=== PATIENT | female | born 1955 | race Two or more races ===

== ENCOUNTER 2022-09-10 16:59 | Emergency (ER) | payer OTHER, MEDICAID ==
[~2022-09-10] VITALS: Ht 162.6 cm; Wt 70.0 kg
[2022-09-10 17:12] VITALS: BP 173/95
[2022-09-10 18:43] LABS: Urine Bacteria NONE SEEN /hpf (None Seen); Urine Blood Negative /uL (Negative); Urine Specific Gravity 1.007 (1.001-1.035); Urine WBC 6 /hpf (0 - 5)
== END 2022-09-10 23:30 | disposition left against medical advice (07) ==
LOC: ER 16:59 → EDBD 16:59 → ER 21:27
DX: R51.9 Headache, unspecified (principal); R11.0 Nausea; R55 Syncope and collapse; R42 Dizziness and giddiness; I95.9 Hypotension, unspecified; R53.1 Weakness; Z53.21 Procedure and treatment not carried out due to patient leaving prior to being seen by health care provider
CPT/HCPCS: 81001; 93005